=== PATIENT | female | born 1990 ===

== ENCOUNTER 2023-09-16 06:54 | Day surgery (SDC) | payer OTHER ==
[~2023-09-16] VITALS: Ht 162.6 cm; Wt 72.6 kg
[~2023-09-16 06:54] MED LIST: NABUMETONE750 MG PO
[2023-09-16] MEDS ORDERED: TRIAMCINOLONE ACETONIDE 40 MG/ML VIAL IJ ONE (13:00)
[2023-09-16] MEDS ORDERED: HEMOSTATIC MATRIX 1 KIT KIT TOP ONE (13:00)
[2023-09-16] MEDS ORDERED: DIBUCAINE 15 GM OINT..GM. TUBE RECTAL ONE (13:00)
[2023-09-16] MEDS ORDERED: AMPICILLIN SODIUM 500 MG VIAL IV ONE (13:00)
== END 2023-09-16 18:05 | disposition home or self-care (01) ==
LOC: CIR.AMB 06:54
PROVIDERS: ATTEND Colon & Rectal Surgery
DX: D12.8 Benign neoplasm of rectum (principal); K64.4 Residual hemorrhoidal skin tags; K62.2 Anal prolapse; L91.0 Hypertrophic scar
CPT/HCPCS: 45171; 46260; J3301